=== PATIENT | male | born 2005 | race Caucasian/White ===

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

== ENCOUNTER 2023-01-15 09:26 | Day surgery (SDC) | payer BC ==
[~2023-01-15] VITALS: Ht 177.8 cm; Wt 88.5 kg
--- NOTE | 2023-01-15 12:15 | NUR ---
01/15/23 1215 BYRON MACK PT WAS PUT ON 10L O2 VIA FACE TENT BROUGHT INTO PACU. DR. JUAREZ DID JAW THRUST AND ELEVATED HOB. O2 UPPER 90'S. TRIAL TO 5L O2 NOW. CURRENTLY 99%. PT VERY SLEEPY, NOT RESPONDING TO VERBAL OR STIMULI AT THIS TIME. WILL ALLOW TO WAKE UP A BIT MORE.
[2023-01-15 12:35] VITALS: BP 115/51
--- NOTE | 2023-01-15 12:47 | NUR ---
01/15/23 1247 BYRON MACK MOM AT BEDSIDE. EATTING AND DRINKING WO DIFF.
== END 2023-01-15 13:17 | disposition home or self-care (01) ==
LOC: ORSCSDS 09:26
PROVIDERS: Orthopaedic Surgery
PROC: 0PSV34Z Reposition Left Finger Phalanx with Internal Fixation Device, Percutaneous Approach (ICD-10-PCS; principal; 2023-01-15 10:45)
DX: S62.625A Displaced fracture of middle phalanx of left ring finger, initial encounter for closed fracture (principal); W27.0XXA Contact with workbench tool, initial encounter
CPT/HCPCS: A9270; J0690; J1100; J2250; J2405; J2704; J2795; J3010; J7120